=== PATIENT | male | born 1940 | race Caucasian/White ===

== ENCOUNTER 2023-10-16 19:40 | Emergency (ER) | payer MEDICARE ==
[2023-10-16] MEDS: Lidocaine 1% 5 ML VIAL INJECT ONE (20:08)
== END 2023-10-16 20:16 | disposition home or self-care (01) ==
LOC: LB.ED 19:40
DX: S60.552A Superficial foreign body of left hand, initial encounter (principal); I10 Essential (primary) hypertension; E78.00 Pure hypercholesterolemia, unspecified; Z95.5 Presence of coronary angioplasty implant and graft; Z95.1 Presence of aortocoronary bypass graft; W45.8XXA Other foreign body or object entering through skin, initial encounter
CPT/HCPCS: 99283